=== PATIENT | female | born 1960 | race Caucasian/White ===

== ENCOUNTER → 2023-07-29 | Outpatient (CLI) | payer OTHER ==
--- NOTE | 2023-07-29 21:30 | MR ---
EXAMINATION TYPE: MR cervical spine wo con DATE OF EXAM: 07/29/2023 COMPARISON: None HISTORY: Chronic neck and right shoulder pain. CONTRAST: None TECHNIQUE: Multiplanar multiecho imaging on a 3.0 Rossy magnet is performed through the cervical spin e. FINDINGS: The craniovertebral junction is normal. Vertebral body alignment is normal. Prevertebral space appears normal. Cord maintains normal signal throughout its visualized course. C7-T1: No focal disc herniation or significant disc bulge is evident. No spinal canal stenosis or n eural foraminal stenosis is present. C6-7: There is loss of disc height is normal. Some mild type I degenerative endplate changes may be p resent. Disc bulge may be present with mild anterior thecal sac compression. No cord contact or cord deformity is evident. No spinal canal stenosis or neural foraminal stenosis is present.. C5-6: Some minimal disc bulge may be present with anterior thecal sac contact. No cord contact is deborah dent. No spinal canal stenosis is present.. C4-5: Mild disc bulge is present with anterior thecal sac flattening. No cord contact or spinal canal stenosis is present. Uncovertebral joint hypertrophy is present with moderate left and more severe r ight foraminal stenosis.. C3-4: No focal disc herniation or significant disc bulge is evident. No spinal canal stenosis or lisa ral foraminal stenosis is present. C2-3: No focal disc herniation or significant disc bulge is evident. No spinal canal stenosis or lisa ral foraminal stenosis is present. IMPRESSION: 1. Degenerative disc changes C6-7. 2. Mild disc bulging greatest at C6-7. No cord contact or spinal canal stenosis present. 3. Uncovertebral joint hypertrophy with some foraminal narrowing greatest at the C4-5 level
== END | disposition home or self-care (01) ==
LOC: RADMRIMAIN 08:44 → MERGE 13:15 → EDBD 13:15
PROVIDERS: ATTEND Orthopaedic Surgery
DX: M48.02 Spinal stenosis, cervical region (principal); M47.812 Spondylosis without myelopathy or radiculopathy, cervical region; M50.323 Other cervical disc degeneration at C6-C7 level; M99.71 Connective tissue and disc stenosis of intervertebral foramina of cervical region
CPT/HCPCS: 72141

== ENCOUNTER → 2023-09-07 | Outpatient (CLI) | payer OTHER ==
[2023-09-07 10:24] VITALS: BP 132/91; PULSE 81; RESP 16; TEMP 98
--- NOTE | 2023-09-07 13:00 | P.PAINPG ---
PQRS Measure Charge Sheet Comment: HISTORY OF PRESENT ILLNESS: A 63 yr old female as a referral from [facility] presents today w severe and chronic neck pain x secondary to for evaluation. Pt states pain level is provoked at 8 /10 in intensity, constant, localized in the mid to lower cervical spine, predominantly axial, achy in character w occasional shooting pain towards the R shoulder and LUE. Pain is provoked by laying supine. Pain is alleviated by PT x 8 wks in Jul 2023, heat, medications (Flexeril), manual massage, repositioning and rest. Cervical disability pain score at 30. 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 No recent weight loss. NEUROLOGICAL: + numbness and tingling along the distal extremities. No seizure disorders or headaches. MUSCULOSKELETAL: + pain PSYCHIATRIC: Denies current depression or suicidal thoughts. Physical Examinations : Constitutional : Cooperative , not in acute distress . Neurologic : Cranial nerve II to XII intact. No focal neurological deficits. Psychiatric : alert & oriented x 3. Matching mood & appropriate affect. Judgment & insight intact. Musculoskeletal : Cervical Spine Motor strength in the deltoid and biceps: Normal right side. Normal Left side Motor strength biceps and the wrist extensors: Normal right side . Normal left side Motor strength in the triceps muscle: Normal right side. Normal left side Deep tendon reflexes: Normal at the biceps. Normal at Brachioradialis. Normal at triceps Vertebral body tenderness to deep palpation over C4 Cervical facet loading test: positive bilaterally Spurling test: positive bilaterally over C4-C5 Neck distraction test: positive bilaterally Flaco sign: positive bilaterally Lumbar spine Motor strength lower extremities ,thigh and legs 5/5 Right side , 5/5 Left side Deep tendon reflexes : Normal Knee Jerk. Normal Ankle Jerk Vertebral body tenderness over Khan Test positive Lumbar facet Loading Test: positive Right / positive Left Range of motion of the lumbar spine Flexion 30 degrees, extension 10 degrees Straight Leg Raise test: Left/ Right positive at degree Dom test: positive right / positive left. Severe tenderness over the Sacroiliac joint on the Right / Left sides Gaenslen test: positive bilaterally Seated flexion test: positive bilaterally. Sacral spine : Severe tenderness over the Sacroiliac joint: right side / left side Range of motion: Flexion of the lumbar spine <60 degrees Range of motion: Extension of the lumbar spine <20 degrees Gaenslen's Test positive Dom test: positive right side / left side Thigh Thrust Test Sacral Thrust Test Imaging: MRI noncontrast of the cervical spine from 07/29/23 reviewed Assessment/ Plan : Cervical DDD Recommendation of BL TFESI C4-C5 #1 May need a series of injections for optimal pain relief. Risks, benefits of procedure discussed and patient verbalized understanding. Admits to anti- coagulant use or medical history of diabetes. Protocol for discontinuation/ continuation of medications ana procedure discussed. All questions answered. I have spent greater than 30 minutes on patient care today. Dr Perez was available by phone for the evaluation of this patient. The time was used to review the medical records including relevant urine studies and Prescription history (MAPs), review of the available imaging, evaluation and examination of the patient, coordination of care with the medical staff and if applicable referring physicians, as well as creation of the medical record Home Medications: Ambulatory Orders Aspirin [Adult Low Dose Aspirin EC] 81 mg PO 09/07/23 Clopidogrel Bisulfate [Clopidogrel] 75 mg PO 09/07/23 Cyclobenzaprine [Flexeril] 10 mg PO HS 09/07/23 Metoprolol Succinate [Metoprolol Succinate ER] 25 mg PO 09/07/23 NIFEdipine 10 mg PO 09/07/23 Controlled Substance Measures - Controlled Substance Measures Is patient prescribed a controlled substance at discharge?: No
== END ==
LOC: PNWHC3 08:56
PROVIDERS: ATTEND Specialist
DX: M50.121 Cervical disc disorder at C4-C5 level with radiculopathy (principal); M47.22 Other spondylosis with radiculopathy, cervical region; M19.90 Unspecified osteoarthritis, unspecified site; I10 Essential (primary) hypertension; Z72.0 Tobacco use; Z79.82 Long term (current) use of aspirin; Z79.899 Other long term (current) drug therapy; Z88.0 Allergy status to penicillin
CPT/HCPCS: 99211

== ENCOUNTER 2023-10-07 08:09 | Day surgery (SDC) | payer OTHER ==
[~2023-10-07 08:09] MED LIST: LACTATED RINGERS 1,000 ML IV SCH
[2023-10-07 08:54] VITALS: TEMP 98
[2023-10-07] MEDS ORDERED: DEXAMETHASONE SOD PHOSPHATE 10 MG/ML 1 ML VIAL ONE (09:10)
[2023-10-07] MEDS ORDERED: IOPAMIDOL M200 10 ML VIAL ONE (09:10)
--- NOTE | 2023-10-07 09:47 | P.PCN ---
Date of Procedure: 10/07/23 Procedure(s) Performed: PREOPERATIVE DIAGNOSIS: 1-cervical radiculopathy . 2-cervical degenerative disc disease. 3-cervical spondylosis with cervical facet arthropathy without myelopathy POSTOPERATIVE DIAGNOSIS: same as preop diagnosis PROCEDURE 1. Transforaminal epidural steroid injection under fluoroscopic guidance at Bilateral C4-5 level. (Fluoroscopy images stored on file in the radiology Department ) 2. Cervical epidurogram . ANESTHESIA: Local with 1% lidocaine 3 ml. EBL: Minimal PROCEDURE INDICATION: The patient with low back pain and radiculopathy symptoms unresponsive to conservative treatment. PROCEDURE DESCRIPTION / TECHNIQUE: The patient was seen and identified in the preoperative area. Risks, benefits, complications, and alternatives were discussed with the patient. The patient agreed to proceed with the procedure and signed the consent, and vital signs were stable. Patient was taken to the OR and time out was completed. The patient was placed in the prone position on procedure table and a pillow was placed under the abdomen to reduce lumbar lordosis. The lumbosacral area was prepped and draped in the usual sterile fashion. Critical pause was taken. Vital signs were closely monitored during the procedure. Using oblique fluoroscopy, the right C 4-5 level was identified, and the skin and deeper tissues just below was localized with 1% lidocaine. Subsequently, a 25-gauge 2-inch spinal needle was advanced under a tunneled view fluoroscopic guidance just underneath the chin of the foramina at the right C4-5 Under lateral fluoroscopy, the needle was then advanced to the posterior border of the interforaminal space. After negative aspiration of CSF and blood and with no paresthesias, 1 mL Isovue 200 contrast dye was injected epidurogram and outlining of the nerve root Subsequently, 1 mL of block solution containing 10 mg Dexamethasone PF was injected. Needle was removed and the same procedure was repeated at the left C4-5 level . At the end of the procedure, skin was cleansed, and bandages were applied. COMPLICATIONS:none DISPOSITION / PLANS: The patient was placed in a supine position and transferred to the recovery area in a stable condition for observation. There was no evide nce of lower extremity motor or sensory deficit after the procedure. Patient was discharged from the recovery room after meeting discharge criteria. Home discharge instructions were given to the patient by the staff. The patient was reexamined prior to discharge.
[2023-10-07 10:06] VITALS: BP 137/97; PULSE 69; RESP 14
--- NOTE | 2023-10-07 10:26 | FL ---
EXAMINATION TYPE: FL guided pain mgmt statistic DATE OF EXAM: 10/07/2023 CLINICAL HISTORY: Neck pain. TECHNIQUE: Fluoroscopy. COMPARISON: None. FINDINGS: Fluoroscopic guidance was provided during pain relief procedure performed by Dr. Perez . A total of 55.3 seconds of fluoroscopic time was utilized during the procedure and side spot image s are acquired. Images acquired shows needle localization at several levels in the cervical spine. IMPRESSION: As Above. TOTAL DAP = 0.71573 mGy x m2.
== END 2023-10-07 10:22 | disposition home or self-care (01) ==
LOC: ORPAIN 08:09
PROVIDERS: ATTEND Specialist
DX: M50.121 Cervical disc disorder at C4-C5 level with radiculopathy (principal); M47.22 Other spondylosis with radiculopathy, cervical region; Z88.0 Allergy status to penicillin; Z88.1 Allergy status to other antibiotic agents; Z79.82 Long term (current) use of aspirin; Z79.02 Long term (current) use of antithrombotics/antiplatelets
CPT/HCPCS: 64483; J1100; Q9966

== ENCOUNTER → 2023-10-21 | Outpatient (CLI) | payer OTHER ==
[2023-10-21 10:06] VITALS: BP 137/95; PULSE 85; RESP 14; TEMP 96.8
--- NOTE | 2023-10-21 14:23 | P.PAINPG ---
PQRS Measure Charge Sheet Comment: HISTORY OF PRESENT ILLNESS: A 63 yr old female presents today w severe and chronic neck pain x 1 yr secondary to DDD, spondylosis and facet arthropathy without myelopathy for evaluation s/p BL TFESI C4-C5 #1. Pt states she experienced 0 % pain relief x 2- 3 wks s/p procedure. Pt states pain level is provoked at 7 /10 in intensity, constant, localized in the mid to lower cervical spine, predominantly axial, throbbing in character w occasional shooting pain towards the R shoulder and LUE. Pain is provoked by laying supine. Pain is alleviated by PT x 8 wks in Jul 2023, heat, medications, manual massage, repositioning and rest. Cervical disability pain score at 30. Interventional procedures include BL TFESI C4-C5 x1 Medications include Flexeril REVIEW OF ORGAN SYSTEMS: CONSTITUTIONAL: No fevers or chills. No recent weight loss. NEUROLOGICAL: + numbness and tingling along the distal extremities. No seizure disorders or headaches. MUSCULOSKELETAL: + pain PSYCHIATRIC: Denies current depression or suicidal thou ghts. Physical Examinations : Constitutional : Cooperative , not in acute distress . Neurologic : Cranial nerve II to XII intact. No focal neurological deficits. Psychiatric : alert & oriented x 3. Matching mood & appropriate affect. Judgment & insight intact. Musculoskeletal : Cervical Spine Motor strength in the deltoid and biceps: Normal right side. Normal Left side Motor strength biceps and the wrist extensors: Normal right side . Normal left side Motor strength in the triceps muscle: Normal right side. Normal left side Deep tendon reflexes: Normal at the biceps. Normal at Brachioradialis. Normal at triceps Vertebral body tenderness to deep palpation over C4 Cervical facet loading test: positive bilaterally Spurling test: positive bilaterally over C4-C5 Neck distraction test: positive bilaterally Flaco sign: positive bilaterally Lumbar spine Motor strength lower extremities ,thigh and legs 5/5 Right side , 5/5 Left side Deep tendon reflexes : Normal Knee Jerk. Normal Ankle Jerk Vertebral body tenderness over Khan Test positive Lumbar facet Loading Test: positive Right / positive Left Range of motion of the lumbar spine Flexion 30 degrees, extension 10 degrees Straight Leg Raise test: Left/ Right positive at degree Dom test: positive right / positive left. Severe tenderness over the Sacroiliac joint on the Right / Left sides Gaenslen test: positive bilaterally Seated flexion test: positive bilaterally. Sacral spine : Severe tenderness over the Sacroiliac joint: right side / left side Range of motion: Flexion of the lumbar spine <60 degrees Range of motion: Extension of the lumbar spine <20 degrees Gaenslen's Test positive Dom test: positive right side / left side Thigh Thrust Test Sacral Thrust Test Imaging: MRI noncontrast of the cervical spine from 07/29/23 reviewed Assessment/ Plan : Cervical DDD Will follow up w Dr Holliday to explore additional treatment options. All questions answered. I have spent greater than 30 minutes on patient care today. Dr Perez was available by phone for the evaluation of this patient. The time was used to review the medical records including relevant urine studies and Prescription history (MAPs), review of the available imaging, evaluation and examination of the patient, coordination of care with the medical staff and if applicable referring physicians, as well as creation of the medical record PQRS Narrative: Hx Alcohol Use (MH) No Home Medications: Ambulatory Orders Aspirin [Adult Low Dose Aspirin EC] 81 mg PO DAILY 09/07/23 Clopidogrel Bisulfate [Clopidogrel] 75 mg PO DAILY 09/07/23 Cyclobenzaprine [Flexeril] 10 mg PO HS 09/07/23 Metoprolol Succinate [Metoprolol Succinate ER] 25 mg PO BID 09/07/23 NIFEdipine 10 mg PO BID 09/07/23 Controlled Substance Measures - Controlled Substance Measures Is patient prescribed a controlled substance at discharge?: No
== END ==
LOC: PNWHC3 09:32
PROVIDERS: ATTEND Specialist
DX: M50.321 Other cervical disc degeneration at C4-C5 level (principal); Z79.82 Long term (current) use of aspirin; Z88.0 Allergy status to penicillin; Z88.1 Allergy status to other antibiotic agents
CPT/HCPCS: 99211